=== PATIENT | male | born 1955 | race Caucasian/White ===

== ENCOUNTER 2020-03-09 02:29 | Inpatient (IN) | payer OTHER ==
[~2020-03-09] VITALS: Ht 182.9 cm; Wt 70.5 kg
[2020-03-09 03:00] VITALS: BP 134/82
[2020-03-09] MEDS ORDERED: PREDNISONE 20 M20 MG PO (04:02)
[2020-03-09] MEDS ORDERED: PREDNISONE 10 M10 MG PO (04:03)
[2020-03-09] MEDS ORDERED: LEXAPRO20 MG PO (04:03)
[2020-03-09] MEDS ORDERED: ALBUTEROL2.5 MG/31 INH (04:05)
[2020-03-09] MEDS ORDERED: PROAIR HFA8.5 GM INH (04:06)
[2020-03-09] MEDS ORDERED: SPIRIVA18 MCG INH (04:13)
[2020-03-09] MEDS ORDERED: OXYCONTIN80 M1 PO (04:13)
[2020-03-09] MEDS ORDERED: CLONAZEPAM2 MG PO (04:16)
[2020-03-09] MEDS ORDERED: PERCOCET 10-321 EAC1 PO (04:18)
[2020-03-09] MEDS ORDERED: RESTORIL30 MG PO (04:19)
[2020-03-09 07:26] LABS: HEMATOCRIT 35.3 % (42.0-52.0); HEMOGLOBIN 11.5 gm/dL (14.0-18.0); MCH 29.1 pg (26.0-34.0); MCHC 32.6 g/dL (28.0-37.0); MCV 89.4 fL (80.0-100.0); RBC 3.95 mil/uL (4.50-6.00); RDW 16.8 % (10.5-14.5); WBC 17.5 thou/uL (4.0-11.0)
[2020-03-09 08:13] VITALS: BP 137/66
[2020-03-09 08:14] LABS: CHOLESTEROL 198 mg/dL (<200); HDL CHOLESTEROL 66 mg/dL (>40); LDL CHOLESTEROL 89 mg/dL (<100); TRIGLYCERIDE 217 mg/dL (<150); TROPONIN-I <0.06 ng/mL (<0.06); VLDL 43 mg/dL (<40)
[2020-03-09 22:21] VITALS: BP 157/82
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
[2020-03-10 09:59] VITALS: BP 152/76
[2020-03-10 19:39] VITALS: BP 150/56
[2020-03-11 06:53] LABS: HEMATOCRIT 34.6 % (42.0-52.0); HEMOGLOBIN 11.6 gm/dL (14.0-18.0); MCH 29.7 pg (26.0-34.0); MCHC 33.5 g/dL (28.0-37.0); MCV 88.8 fL (80.0-100.0); PLATELET COUNT 406 thou/uL (150-400); RBC 3.89 mil/uL (4.50-6.00); RDW 16.8 % (10.5-14.5); WBC 14.7 thou/uL (4.0-11.0)
[2020-03-11 07:11] LABS: ALBUMIN 3.6 g/dL (3.4-5.0); CALCIUM 9.6 mg/dL (8.5-10.1); MAGNESIUM 2.2 mg/dL (1.8-2.4); PHOSPHORUS 4.2 mg/dL (2.5-4.9); POTASSIUM 4.4 mmol/L (3.5-5.1); TOTAL BILIRUBIN 0.2 mg/dL (<0.1-1.0); TOTAL PROTEIN 7.5 g/dL (6.4-8.2)
[2020-03-11 07:30] VITALS: BP 137/61
[2020-03-11 07:32] LABS: TSH 2.356 uIU/mL (0.358-3.740)
[2020-03-11 07:40] LABS: ABSOLUTE NEUTROPHILS 10.7 thou/uL (1.4-8.2); PLATELET ESTIMATE NORMAL
[2020-03-11 10:01] VITALS: BP 137/61
[2020-03-11 20:26] VITALS: BP 143/55
[2020-03-12 08:04] VITALS: BP 127/74
[2020-03-12 10:40] VITALS: BP 127/74
[2020-03-12 19:53] VITALS: BP 139/62
[2020-03-13 08:55] VITALS: BP 125/60
[2020-03-13 19:53] VITALS: BP 130/50
[2020-03-14 08:12] VITALS: BP 129/57
[2020-03-14 12:34] VITALS: BP 129/57
[2020-03-14 19:29] VITALS: BP 123/68
[2020-03-15 07:42] VITALS: BP 127/76
[2020-03-15] MEDS ORDERED: CLONAZEPAM 1 MG1 M1 PO (10:38)
[2020-03-15 11:15] VITALS: BP 127/76
[2020-03-15 11:28] VITALS: BP 127/76
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
== END 2020-03-15 13:00 | disposition home or self-care (01) | DRG 885 ==
LOC: EDBD → SBH
PROVIDERS: Internal Medicine; Nurse Practitioner Family; ADMIT Psychiatry & Neurology Psychiatry
DX: F32.2 Major depressive disorder, single episode, severe without psychotic features (principal); R45.851 Suicidal ideations; F41.9 Anxiety disorder, unspecified; M19.90 Unspecified osteoarthritis, unspecified site; J44.9 Chronic obstructive pulmonary disease, unspecified; F11.90 Opioid use, unspecified, uncomplicated; G47.00 Insomnia, unspecified; Z87.891 Personal history of nicotine dependence; Z79.899 Other long term (current) drug therapy; Z91.19 Patient's noncompliance with other medical treatment and regimen; Z99.81 Dependence on supplemental oxygen; Z88.0 Allergy status to penicillin
CPT/HCPCS: 10880